=== PATIENT | female | born 1970 | race Caucasian/White ===

== ENCOUNTER → 2017-02-12 | Outpatient (CLI) | payer BC ==
--- NOTE | 2017-02-12 14:46 | DIAGNOSTIC IMAGING REPORT ---
R HAND MIN 3 VIEWS ROUTINE CLINICAL HISTORY: ARTHRALGIA OF BOTH HANDS,MYALGIA. COMPARISON: None FINDINGS: Alignment of the right hand is anatomic. There is a suspected 7 mm cyst within the capitate which is of doubtful significance. No fracture or suspicious lesion is present. No erosions are identified. Joint spaces are preserved. IMPRESSION: 1. No significant abnormality of the right hand. 2. No radiographic evidence of an erosive/inflammatory arthropathy. Electronically signed by: Josse Fonseca M.D. 02/12/2017 2:44 PM Dictated Date/Time: 02/12/2017 2:43 PM
--- NOTE | 2017-02-12 14:46 | DIAGNOSTIC IMAGING REPORT ---
L HAND MIN 3 VIEWS ROUTINE CLINICAL HISTORY: 46 years-old Female presenting with ARTHRALGIA OF BOTH HANDS,MYALGIA. TECHNIQUE: Frontal, oblique, and lateral views of the left hand were obtained. COMPARISON: Correlation made to plain radiograph of the right hand performed the same day. FINDINGS: No significant degenerative change. No acute fracture or malalignment. No radiographic evidence of soft tissue swelling. IMPRESSION: No osseous abnormality of the left hand. Electronically signed by: Kermit France M.D. 02/12/2017 2:44 PM Dictated Date/Time: 02/12/2017 2:43 PM
[2017-02-12 14:50] LABS: URINE APPEARANCE CLEAR (CLEAR); URINE BILIRUBIN NEG (NEG); URINE COLOR YELLOW; URINE NITRITE NEG (NEG); URINE SPECIFIC GRAVITY 1.017 (1.000-1.030); UROBILINOGEN NEG (NEG)
[2017-02-12 14:53] LABS: MANUAL MICROSCOPIC REQUIRED? NO; REVIEW REQ? NO
[2017-02-12 15:17] LABS: TOTAL IRON BINDING CAPACITY 267 mcg/dl (250-450)
== END | disposition home or self-care (01) ==
LOC: C.RAD1850 13:43
PROVIDERS: ATTEND Internal Medicine Rheumatology
DX: M25.541 Pain in joints of right hand (principal); M25.542 Pain in joints of left hand; M79.1 Myalgia; R19.7 Diarrhea, unspecified; R70.0 Elevated erythrocyte sedimentation rate; R76.8 Other specified abnormal immunological findings in serum